=== PATIENT | male | born 2000 | race Two or more races ===

== ENCOUNTER 2020-03-20 21:15 | Emergency (ER) | payer OTHER ==
[~2020-03-20] VITALS: Ht 182.9 cm; Wt 91.0 kg
[2020-03-20] MEDS ORDERED: IBUPROFEN 600MG TABLET PO ONE (22:30)
[2020-03-21 00:14] VITALS: BP 124/67
== END 2020-03-21 00:21 | disposition home or self-care (01) ==
LOC: ER 21:15
DX: S92.911A Unspecified fracture of right toe(s), initial encounter for closed fracture (principal); F16.129 Hallucinogen abuse with intoxication, unspecified; V03.90XA Pedestrian on foot injured in collision with car, pick-up truck or van, unspecified whether traffic or nontraffic accident, initial encounter; Y93.89 Activity, other specified; Y92.89 Other specified places as the place of occurrence of the external cause
CPT/HCPCS: 73610; 73630; 99284; Z7610